=== PATIENT | female | born 1990 | race African-American/Black ===

== ENCOUNTER 2019-02-26 13:48 | Emergency (ER) | payer SELFPAY ==
[~2019-02-26] VITALS: Ht 172.7 cm; Wt 86.2 kg
[2019-02-26 14:00] VITALS: BP 114/77
--- NOTE | 2019-02-26 14:06 | NUR ---
Patient ambulated to bed 5 at this time.
--- NOTE | 2019-02-26 14:12 | NUR ---
C/O BUG BITE. PT REPORTS FIRST NOTICING BUG BITE YESTERDAY AND SWELLING OVER NIGHT ON MEDIAL LT ANKLE WITH THIN CLEAR YELLOW DRAINAGE. 5/10 DULL PAIN . MEDHX:HTN. RX:NONE. PATIENT POSITIONED FOR COMFORT; HOB ELEVATED; BEDRAILS UP X2; BED DOWN. ER MD MADE AWARE OF PT STATUS.
--- NOTE | 2019-02-26 14:42 | NUR ---
Patient being evaluated by DR AMARAL at bedside.
--- NOTE | 2019-02-26 15:18 | NUR ---
US AT BEDSIDE
[2019-02-26 16:33] VITALS: BP 114/77
--- NOTE | 2019-02-26 16:33 | NUR ---
Patient discharged with v/s stable. Written and verbal after care instructions given and explained. Patient verbalized understanding. Ambulatory with steady gait. All questions addressed prior to discharge. Advised to follow up with PMD.
== END 2019-02-26 16:33 | disposition home or self-care (01) ==
LOC: MED 13:48
DX: M25.872 Other specified joint disorders, left ankle and foot (principal); Z88.0 Allergy status to penicillin
CPT/HCPCS: 76881; 99284; Q0092